=== PATIENT | female | born 1955 | race Caucasian/White ===

== ENCOUNTER → 2024-04-19 14:59 | Outpatient (REF) | payer MEDICARE, OTHER, SELFPAY | LOC: WDC 14:59 | PROVIDERS: ATTENDING PHYSICIAN Internal Medicine | DX: Z12.31 Encounter for screening mammogram for malignant neoplasm of breast (principal) | CPT/HCPCS: 77063; 77067 ==

== ENCOUNTER → 2024-06-20 15:29 | Outpatient (REF) | payer MEDICARE, OTHER, SELFPAY | LOC: HWRAD 15:29 | PROVIDERS: ATTENDING PHYSICIAN Internal Medicine Rheumatology; FAMILY PHYSICIAN Internal Medicine | DX: M35.00 Sjogren syndrome, unspecified (principal); R68.84 Jaw pain | CPT/HCPCS: 70486 ==

== ENCOUNTER → 2024-12-23 14:25 | Outpatient (REF) | payer MEDICARE, OTHER, SELFPAY | LOC: RAD 14:25 | PROVIDERS: ATTENDING PHYSICIAN Internal Medicine | DX: M25.532 Pain in left wrist (principal) | CPT/HCPCS: 73110 ==

== ENCOUNTER → 2025-02-09 14:57 | Outpatient (REF) | payer MEDICARE, OTHER, SELFPAY | LOC: HWRAD 14:57 | PROVIDERS: ATTENDING PHYSICIAN Internal Medicine Rheumatology; FAMILY PHYSICIAN Internal Medicine | DX: M81.0 Age-related osteoporosis without current pathological fracture (principal) | CPT/HCPCS: 77080 ==

== ENCOUNTER → 2025-04-21 13:18 | Outpatient (REF) | payer MEDICARE, OTHER, SELFPAY | LOC: WDC 13:18 | PROVIDERS: ATTENDING PHYSICIAN Nurse Practitioner | DX: Z12.31 Encounter for screening mammogram for malignant neoplasm of breast (principal) | CPT/HCPCS: 77063; 77067 ==